=== PATIENT | female | born 1985 | race Caucasian/White ===

== ENCOUNTER 2022-05-15 11:17 | Emergency (ER) | payer SELFPAY ==
[~2022-05-15] VITALS: Ht 152.4 cm; Wt 59.1 kg
[2022-05-15 12:05] VITALS: BP 129/78
[2022-05-15 12:22] LABS: BASOPHILS % (AUTO) 0.4 % (0-1); EOSINOPHILS % (AUTO) 0.3 % (0-6); HEMATOCRIT 41.1 % (35.0-45.0); HEMOGLOBIN 13.6 g/dl (12.0-16.0); LYMPHOCYTES # (AUTO) 2.3 X10'3 (1.1-4.8); LYMPHOCYTES % (AUTO) 27.4 % (21-51); MEAN CORPUSCULAR HEMOGLOBIN 29.3 PG (27.0-31.0); MEAN CORPUSCULAR HGB CONC 33.1 g/dL (33.0-36.5); MEAN CORPUSCULAR VOLUME 88.6 FL (78-98); MEAN PLATELET VOLUME 9.8 FL (7.4-10.4); MONOCYTES # (AUTO) 0.8 X10'3 (0-0.9); NEUTROPHILS # (AUTO) 5.3 X10'3 (1.8-7.7); NEUTROPHILS % (AUTO) 62.9 % (42-75); PLATELET COUNT 258 X10'3 (140-440); RED BLOOD COUNT 4.64 X10'6 (4.20-5.60); RED CELL DISTRIBUTION WIDTH 12.9 % (11.5-14.5); WHITE BLOOD COUNT 8.5 X10'3 (4.5-11.0)
[2022-05-15 12:50] LABS: ALANINE AMINOTRANSFERASE 19 U/L (12-78); ALBUMIN 3.9 G/DL (3.4-5.0); ALKALINE PHOSPHATASE 91 IU/L (46-116); ANION GAP 13 (8-16); ASPARTATE AMINO TRANSFERASE 21 U/L (10-37); BILIRUBIN,TOTAL 0.4 MG/DL (0.1-1.0); BLOOD UREA NITROGEN 7 MG/DL (7-18); BUN/CREATININE RATIO 11.9 (6.6-38.0); CALCIUM 9.2 MG/DL (8.5-10.1); CHLORIDE 104 MMOL/L (99-107); CREATININE 0.59 MG/DL (0.40-0.90); GLUCOSE 102 MG/DL (70-104); SODIUM 138 MMOL/L (135-145); TOTAL CARBON DIOXIDE 21.4 MMOL/L (24-32); TOTAL PROTEIN 7.8 G/DL (6.4-8.2); eGFR > 90 ML/MIN
[2022-05-15] MEDS ORDERED: LIDOcaine Viscous 15ml cup MM ONE (13:40)
[2022-05-15] MEDS ORDERED: sucralfate 1 gm tablet PO ONE (13:40)
[2022-05-15] MEDS ORDERED: mag hydrox/Alum hydrox/simeth 30ml oral suspension PO ONE (13:40)
[2022-05-15] MEDS ORDERED: TRAM50TA2 PO (14:40)
== END 2022-05-15 15:20 | disposition home or self-care (01) ==
LOC: ER 11:18
DX: K80.50 Calculus of bile duct without cholangitis or cholecystitis without obstruction (principal)
CPT/HCPCS: 36415; 71045; 76700; 80053; 83880; 84484; 85025; 93005; 99285

== ENCOUNTER 2022-07-31 08:49 | Day surgery (SDC) | payer BC, MEDICAID ==
[2022-07-26 16:14] LABS: BASOPHILS % (AUTO) 0.3 % (0-1); EOSINOPHILS % (AUTO) 0.6 % (0-6); LYMPHOCYTES # (AUTO) 2.8 X10'3 (1.1-4.8); LYMPHOCYTES % (AUTO) 35.6 % (21-51); MEAN CORPUSCULAR HEMOGLOBIN 29.2 PG (27.0-31.0); MEAN CORPUSCULAR HGB CONC 33.2 g/dL (33.0-36.5); MEAN CORPUSCULAR VOLUME 88.1 FL (78-98); MONOCYTES # (AUTO) 0.9 X10'3 (0-0.9); MONOCYTES % (AUTO) 10.7 % (2-12); NEUTROPHILS # (AUTO) 4.2 X10'3 (1.8-7.7); NEUTROPHILS % (AUTO) 52.8 % (42-75); PRE OP HEMATOCRIT 41.8 % (35.0-45.0); PRE OP HEMOGLOBIN 13.9 g/dL (12.0-16.0); PRE OP PLATELET COUNT 278 X10'3 (140-440); RED BLOOD COUNT 4.75 X10'6 (4.20-5.60); RED CELL DISTRIBUTION WIDTH 13.2 % (11.5-14.5)
[2022-07-26 16:25] LABS: HCG SERUM QL NEGATIVE
[2022-07-26 16:27] LABS: ALBUMIN 4.1 G/DL (3.4-5.0); ALBUMIN/GLOBULIN RATIO 1.1 (1.1-1.5); ALKALINE PHOSPHATASE 96 IU/L (46-116); BLOOD UREA NITROGEN 17 MG/DL (7-18); BUN/CREATININE RATIO 25.8 (6.6-38.0); CALCIUM 9.1 MG/DL (8.5-10.1); CHLORIDE 104 MMOL/L (99-107); CREATININE 0.66 MG/DL (0.40-0.90); PRE OP ALT 21 U/L (30-65); PRE OP ANION GAP 6 (8-16); PRE OP AST 21 U/L (10-37); PRE OP BILIRUB, TOTAL 0.2 MG/DL (0.0-1.0); PRE OP GLUCOSE 92 MG/DL (70-104); PRE OP POTASSIUM 3.9 MMOL/L (3.4-5.1); PRE OP SODIUM 137 MMOL/L (135-145); TOTAL CARBON DIOXIDE 26.9 MMOL/L (24-32); TOTAL PROTEIN 7.7 G/DL (6.4-8.2); eGFR > 90 ML/MIN
[~2022-07-31] VITALS: Ht 152.4 cm; Wt 60.3 kg
[2022-07-31] VITALS (18 sets, daily range): BP systolic 113–136; BP diastolic 75–97
[~2022-07-31 08:49] MED LIST: AMIT10TA6 PO; ERGO500054 PO; INDOCYANINE GREEN 25 MG/10 ML VIAL IV ONE; ceFAZolin inj. 2,000 MG in dextrose 5%-water 100 ML IV ONE; famotidine 20mg tablet PO ONE; ringers solution, lacted 1,000 ML IV SCH
[2022-07-31] MEDS ORDERED: LIDOcaine 1% 30ml preserv. free vial ONE (10:36)
[2022-07-31] MEDS ORDERED: BUPIVAcaine 0.5% inj/PF 30 ML ONE (10:36)
[2022-07-31] MEDS ORDERED: midazolam 1 mg/ML 2ml injection ONE (10:43)
[2022-07-31] MEDS ORDERED: fentaNYL/PF 50MCG/1 ML 2ML syringe ONE ×2 (10:43→11:28)
[2022-07-31] MEDS ORDERED: sevoflurane 250ml liquid IH ONE (10:50)
[2022-07-31] MEDS ORDERED: glycopyrrolate 0.2mg/ml inj ONE (11:31)
[2022-07-31] MEDS ORDERED: ondansetron/PF 4mg/2ml inj ONE (11:31)
[2022-07-31] MEDS ORDERED: rocuronium 10mg/ml inj IV ONE (11:31)
[2022-07-31] MEDS ORDERED: LIDOcaine 2% (20mg/ml) 5ml vial ONE (11:31)
[2022-07-31] MEDS ORDERED: dexamethasone sod phosphate 4mg/ml inj. ONE (11:31)
[2022-07-31] MEDS ORDERED: propofol inj 20 ML IV ONE (11:31)
[2022-07-31] MEDS ORDERED: neostigmine methylsulfate 1 MG/ML 10ml vial ONE (11:31)
[2022-07-31] MEDS ORDERED: acetaminophen 1,000mg/100ml IV 100 ML IV ONE (11:31)
[2022-07-31] MEDS ORDERED: BUPIVAcaine 0.5% inj/PF 30 ml vial IJ ONE (11:36)
--- NOTE | 2022-07-31 11:57 | NUR ---
Received from OR via [facility], accompanied by Anesthesiologist DR HARMON and report given by Anesthesiologist AND MACHINERY MOVER. PT VERY DROWSY W/ETT IN PLACE TO MASK. NO S/S OF DISTRESS/DISCOMFORT. ABDOMEN W/4 SMALL LAP SITES W/DERMABOND CDI. Addendum: 07/31/22 at 1216 by Merry Trevino RN Amended: Links added.
[2022-07-31] MEDS ORDERED: oxyCODONE/APAP 5-325mg tablet PO PRN (12:05)
[2022-07-31] MEDS ORDERED: meperidine/PF 25mg/ml syringe IV PRN ×5 (12:35→12:50)
[2022-07-31] MEDS ORDERED: ondansetron/PF 4mg/2ml inj IV PRN ×2 (12:35→12:50)
[2022-07-31] MEDS ORDERED: meperidine/PF 25mg/ml syringe ONE ×2 (12:36→12:41)
[2022-07-31] MEDS ORDERED: morphine 2 MG/ML inj. syringe IV PRN (12:50)
[2022-07-31] MEDS ORDERED: ringers solution, lacted 1,000 ML IV SCH (12:50)
[2022-07-31] MEDS ORDERED: proCHLORperazine 10 MG/2 ml inj IV PRN (12:50)
[2022-07-31] MEDS ORDERED: morphine 4 MG/ML inj SYRINge IV PRN (12:50)
--- NOTE | 2022-07-31 14:57 | NUR ---
PT UP AND ABLE TO AMBULATE SAFELY. D/C INSTRUCTIONS GIVEN AND GONE OVER W/PT WHO VERBALIZED UNDERSTANDING. PT D/CD TO HOME VIA W/C TO PRIVATE VEHICLE W/O INCIDENT. Addendum: 07/31/22 at 1519 by Merry Trevino RN Amended: Links added.
== END 2022-07-31 14:57 | disposition home or self-care (01) ==
LOC: PAS 08:49
PROVIDERS: ATTEND Surgery
DX: K81.1 Chronic cholecystitis (principal); G43.909 Migraine, unspecified, not intractable, without status migrainosus; Z79.899 Other long term (current) drug therapy; Z98.890 Other specified postprocedural states
CPT/HCPCS: 36415; 47563; 80053; 82948; 84703; 85025; J0131; J0690; J1100; J2175; J2250; J2270; J2405; J2704; J2710; J3010; J3490; J7030; J7060; J7120; S0020; S2900; Z7506; Z7508; Z7512; A4215; A4618; A7000